=== PATIENT | female | born 1940 | race Hispanic/Latino ===

== ENCOUNTER 2021-04-15 13:16 | Emergency (ER) | payer OTHER ==
[~2021-04-15] VITALS: Ht 167.6 cm; Wt 77.6 kg
[2021-04-15] MEDS ORDERED: 0.9%NACL 1000ML 1,000 ML IV ONE (13:51)
[2021-04-15] MEDS ORDERED: 0.9% NACL 500ML IV.SOLN 500 ML IV ONE (14:00)
[2021-04-15 14:08] LABS: BASOPHILS % (AUTO) 0.4 % (0.0-5.0); EOSINOPHILS % (AUTO) 0.6 % (0.0-8.0); HEMATOCRIT 39.3 % (36-48); LYMPHOCYTES % (AUTO) 26.1 % (21.0-51.0); MEAN CORPUSCULAR HEMOGLOBIN 28.7 pg (27.0-33.0); MEAN CORPUSCULAR HGB CONC 31.3 g/dL (32.0-36.0); MEAN CORPUSCULAR VOLUME 91.8 fL (79-99); MONOCYTES % (AUTO) 9.7 % (3.0-13.0); NEUTROPHILS % (AUTO) 62.4 % (40.0-77.0); PLATELET COUNT (AUTO) 222 K/uL (130-400); RED BLOOD CELL COUNT(AUTO) 4.28 MIL/uL (4.00-5.50); RED CELL DISTRIBUTION WIDTH 15.4 % (11.0-15.5); WHITE BLOOD COUNT (AUTO) 13.4 K/uL (4.8-10.8)
[2021-04-15 14:09] LABS: APPEARANCE,URINE CLEAR (CLEAR); BILIRUBIN,URINE NEGATIVE (NEGATIVE); COLOR,URINE YELLOW (YELLOW); GLUCOSE, URINE (UA) NEGATIVE (NEGATIVE); KETONES,URINE NEGATIVE (NEGATIVE); LEUKOCYTE ESTERASE ,URINE LARGE (NEGATIVE); NITRATE,URINE NEGATIVE (NEGATIVE); OCCULT BLOOD,URINE NEGATIVE (NEGATIVE); PROTEIN,URINE NEGATIVE (NEGATIVE); UROBILINOGEN,URINE 0.2 mg/dL (0.2-1.0)
[2021-04-15 14:27] LABS: BACTERIA,URINE Rare /HPF (None Seen); CREATININE 1.1 mg/dL (0.5-1.5); POTASSIUM 4.6 mmol/L (3.5-5.1); RBC,URINE None Seen /HPF (0-1); SQUAMOUS EPITHELIAL CELL,UR Rare /HPF (0-2)
[2021-04-15 14:33] LABS: ALBUMIN 3.4 g/dL (3.5-5.0); BILIRUBIN,TOTAL 0.4 mg/dL (0.2-1.0); TOTAL PROTEIN, SERUM 7.2 g/dL (6.0-8.3)
[2021-04-15 15:00] VITALS: BP 138/50
[2021-04-15] MEDS ORDERED: CEFTRIAXONE 1G VIAL IV ONE (15:00)
[2021-04-15] MEDS ORDERED: CEPH500B PO (15:39)
== END 2021-04-15 16:01 | disposition home or self-care (01) ==
LOC: EDBD 13:16 → EDH 13:16
DX: N39.0 Urinary tract infection, site not specified (principal); E86.0 Dehydration; E11.9 Type 2 diabetes mellitus without complications; I10 Essential (primary) hypertension; Z90.49 Acquired absence of other specified parts of digestive tract
CPT/HCPCS: 36415; 80053; 81001; 84484; 85025; 87088; 93005; 96361; 96374; 99284; J0696; J7030